=== PATIENT | male | born 2000 ===

== ENCOUNTER 2020-12-23 11:46 | Emergency (ER) | payer OTHER ==
[2020-12-23] MEDS ORDERED: IBUPROFEN 600 MG TAB PO STA (12:10)
[2020-12-23] MEDS ORDERED: ACETAMINOPHEN TAB 500 MG TAB PO STA (12:10)
[2020-12-23] MEDS ORDERED: SODIUM CHLORIDE 0.9% 1,000 ML IV STA (12:11)
--- NOTE | 2020-12-23 12:42 | XR ---
EXAMINATION TYPE: XR chest 2V DATE OF EXAM: 12/23/2020 COMPARISON: NONE TECHNIQUE: PA and lateral views submitted. HISTORY: Fever and cough FINDINGS: The lungs are clear and there is no pneumothorax, pleural effusion, or focal pneumonia. Interstitia l pattern noted. IMPRESSION: 1. Related bronchitis or interstitial pneumonia, pneumonitis.
[2020-12-23] MEDS ORDERED: SODIUM CHLORIDE 0.9% 50 ML IVPB ONE (14:00)
--- NOTE | 2020-12-23 14:26 | ED ---
General Adult HPI - General Chief complaint: Nausea/Vomiting/Diarrhea Stated complaint: Covid exposure, fever, N/V/D, SOB Time Seen by Provider: 12/23/20 12:06 Source: patient, RN notes reviewed Mode of arrival: ambulatory Limitations: no limitations - History of Present Illness Initial comments: Patient is a 20-year-old male who tested positive for Covid several days ago. She notes that he is feverish has a cough. He came to the emergency room because he was not feeling well. Nurse noted the patient was hyperventilating during her triage. He was otherwise a well-appearing 20-year-old male. He denied any chest pain shortness of breath headache diarrhea constipation. - Related Data Allergies Allergy/AdvReac Type Severity Reaction Status Date / Time No Known Allergies Allergy Verified 12/23/20 12:42 Review of Systems ROS Statement: Those systems with pertinent positive or pertinent negative responses have been documented in the HPI. ROS Other: All systems not noted in ROS Statement are negative. Past Medical History Past Medical History: Asthma History of Any Multi-Drug Resistant Organisms: None Reported Past Surgical History: No Surgical Hx Reported Past Psychological History: No Psychological Hx Reported Smoking Status: Current every day smoker Past Alcohol Use History: None Reported Past Drug Use History: Marijuana General Exam Limitations: no limitations General appearance: alert, in no apparent distress Head exam: Present: atraumatic, normocephalic, normal inspection Eye exam: Present: normal appearance, PERRL, EOMI. Absent: scleral icterus, conjunctival injection, periorbital swelling Neck exam: Present: normal inspection Respiratory exam: Present: normal lung sounds bilaterally. Absent: respiratory distress, wheezes, rales, rhonchi, stridor Cardiovascular Exam: Present: regular rate, normal rhythm, normal heart sounds. Absent: systolic murmur, diastolic murmur, rubs, gallop, clicks GI/Abdominal exam: Present: soft, normal bowel sounds. Absent: distended, tenderness, guarding, rebound, rigid Extremities exam: Present: normal inspection, full ROM, normal capillary refill. Absent: tenderness, pedal edema, joint swelling, calf tenderness Neurological exam: Present: alert, oriented X3 Psychiatric exam: Present: normal affect, normal mood Skin exam: Present: warm, dry, intact, normal color. Absent: rash Course Vital Signs 12/23/20 12/23/20 11:47 12:25 Temperature 99.0 F Pulse Rate 95 Respiratory 16 28 H Rate Blood Pressure 133/72 O2 Sat by Pulse 100 Oximetry Medical Decision Making - Medical Decision Making 20-year-old male tested positive for covert several days ago presenting for reevaluation. Covid test, chest x-ray ordered. Covid test positive. Monoclonal antibody therapy ordered as patient does meet the criteria. Case discussed with Dr. Yanez him a patient can discharge home after infusion. - Lab Data Lab Results 12/23/20 Range/Units 12:53 Coronavirus (PCR) Detected A (Not Detectd) - Radiology Data Radiology results: report reviewed, image reviewed Chest x-ray: Related bronchitis or interstitial pneumonia. Pneumonitis. Disposition Clinical Impression: COVID Disposition: HOME SELF-CARE Condition: Stable Instructions (If sedation given, give patient instructions): Coronavirus Disease 2019 (COVID-19) Additional Instructions: Please return to the Emergency Department if symptoms worsen or any other concerns. Follow-up primary care as needed. Social distance for the next 10-14 days. Take Tylenol Motrin as needed for fever. Increase oral fluids. Avoid any strenuous activity or exercise. Is patient prescribed a controlled substance at d/c from ED?: No Referrals: None,Stated [Primary Care Provider] - 1-2 days Time of Disposition: 14:26
[2020-12-23] MEDS ORDERED: CASIRIVIMAB (REGN10933) (EUA) 600 MG, IMDEVIMAB (REGN10987) (EUA) 600 MG in SODIUM CHLO... IVPB ONE (14:30)
[2020-12-23 14:51] VITALS: RESP 20
[2020-12-23 15:13] VITALS: BP 122/78; PULSE 82; TEMP 98.2
== END 2020-12-23 15:25 | disposition home or self-care (01) ==
LOC: EC 11:46
DX: U07.1 COVID-19 (principal); F17.200 Nicotine dependence, unspecified, uncomplicated; J45.909 Unspecified asthma, uncomplicated
CPT/HCPCS: 87635; 71046; 99285; Q0243

== ENCOUNTER 2021-08-18 08:59 | Emergency (ER) | payer OTHER ==
[2021-08-18 09:06] VITALS: BP 147/88; PULSE 70; RESP 20; TEMP 98.6
[2021-08-18] MEDS ORDERED: ACET/COD 300 MG/30 MG STARTER PACK 6 TAB BTL PO STA (09:49)
--- NOTE | 2021-08-18 09:49 | ED ---
General Adult HPI - General Chief complaint: Neck Pain/Injury Stated complaint: shoulder pain Time Seen by Provider: 08/18/21 09:19 Source: patient, RN notes reviewed Mode of arrival: ambulatory Limitations: no limitations - History of Present Illness Initial comments: This a 20-year-old male presents emergency department with chief complaint right-sided neck pain. Patient states that started yesterday though work states that it's right shoulder neck hurts return to way the left is primarily on the right side. He denies any blurred vision no focal weakness no fevers or chills denies any trauma no falls. Patient states that at rest he is much better. - Related Data Previous Rx's Medication Instructions Recorded Cyclobenzaprine [Flexeril] 10 mg PO TID PRN #15 tab 08/18/21 Ibuprofen [Motrin] 600 mg PO Q8HR PRN #30 tab 08/18/21 Allergies Allergy/AdvReac Type Severity Reaction Status Date / Time No Known Allergies Allergy Verified 08/18/21 09:06 Review of Systems ROS Statement: Those systems with pertinent positive or pertinent negative responses have been documented in the HPI. ROS Other: All systems not noted in ROS Statement are negative. Past Medical History Past Medical History: Asthma History of Any Multi-Drug Resistant Organisms: None Reported Past Surgical History: No Surgical Hx Reported Past Psychological History: No Psychological Hx Reported Smoking Status: Current every day smoker Past Alcohol Use History: None Reported Past Drug Use History: Marijuana General Exam Limitations: no limitations General appearance: alert, in no apparent distress Head exam: Present: atraumatic, normocephalic, normal inspection Eye exam: Present: normal appearance, PERRL, EOMI. Absent: scleral icterus, conjunctival injection, periorbital swelling ENT exam: Present: normal exam, normal oropharynx, mucous membranes moist Neck exam: Present: normal inspection, tenderness (Right trapezius), full ROM (Pain with range of motion primarily looking to the left). Absent: meningismus, lymphadenopathy Respiratory exam: Present: normal lung sounds bilaterally. Absent: respiratory distress, wheezes, rales, rhonchi, stridor Cardiovascular Exam: Present: regular rate, normal rhythm, normal heart sounds. Absent: systolic murmur, diastolic murmur, rubs, gallop, clicks Extremities exam: Present: other (Upper extremity strength equal bilaterally, neurovascular intact equal color equal warmth) Course Vital Signs 08/18/21 09:04 Temperature 98.6 F Pulse Rate 70 Respiratory 20 Rate Blood Pressure 147/88 O2 Sat by Pulse 99 Oximetry Medical Decision Making - Medical Decision Making Patient has right trapezius muscle strain, muscle spasm. Patient will be discharged in stable condition with pain control, anti-inflammatories and muscle relaxers. Disposition Clinical Impression: Trapezius muscle spasm, Neck pain Disposition: HOME SELF-CARE Condition: Stable Instructions (If sedation given, give patient instructions): Cervical Strain (ED), Muscle Spasm (ED) Additional Instructions: Please return to the Emergency Department if symptoms worsen or any other concerns. Prescriptions: Cyclobenzaprine [Flexeril] 10 mg PO TID PRN #15 tab PRN Reason: Muscle Spasm Ibuprofen [Motrin] 600 mg PO Q8HR PRN #30 tab PRN Reason: Pain Is patient prescribed a controlled substance at d/c from ED?: No Referrals: None,Stated [Primary Care Provider] - 1-2 days Time of Disposition: 09:49
== END 2021-08-18 10:05 | disposition home or self-care (01) ==
LOC: EC 08:59
DX: M54.2 Cervicalgia (principal); M62.838 Other muscle spasm; J45.909 Unspecified asthma, uncomplicated; F17.200 Nicotine dependence, unspecified, uncomplicated
CPT/HCPCS: 99283

== ENCOUNTER → 2021-09-11 | Outpatient (CLI) | payer OTHER ==
--- NOTE | 2021-09-11 14:29 | XR ---
EXAMINATION TYPE: XR thoracic spine complete DATE OF EXAM: 09/11/2021 COMPARISON: NONE HISTORY: Pain TECHNIQUE: 3 views submitted FINDINGS: Alignment is anatomic. There is no compression deformities. There is mild hypertrophic spurring invo lving the lower thoracic spine with mild disc space narrowing. IMPRESSION: 1. Mild anterior hypertrophic spurring with mild disc space narrowing and lower thoracic spine.
--- NOTE | 2021-09-11 14:29 | XR ---
EXAM TYPE: LUMBAR SPINE X RAY SERIES COMPARISON: NONE HISTORY: Pain TECHNIQUE: 3 views are submitted. FINDINGS: Alignment is anatomic. The pedicles are intact. The transverse processes are intact. There is no s pondylolysis or spondylolisthesis. Mild disc space narrowing L4-5 and L5-S1. Facet arthropathy L4-5 and L5-S1. IMPRESSION: 1. Mild disc space narrowing L4-5 and L5-S1 with mild facet arthropathy arthropathy. Consider MRI.
== END | disposition home or self-care (01) ==
LOC: RADXRMAIN 13:59
PROVIDERS: ATTEND Internal Medicine
DX: M89.38 Hypertrophy of bone, other site (principal)
CPT/HCPCS: 72072; 72100

== ENCOUNTER → 2022-10-29 | Outpatient (CLI) | payer OTHER ==
--- NOTE | 2022-10-29 07:31 | MR ---
EXAMINATION TYPE: MR thoracic spine wo con DATE OF EXAM: 10/29/2022 COMPARISON: Thoracic spine x-ray August 05, 2022 HISTORY: Chronic mid back pain. Kyphoscoliosis per patient. TECHNIQUE: Multiplanar, multisequence imaging of thoracic spine is performed without contrast FINDINGS: Spinal cord shows normal course, caliber, and signal as it courses the thoracic spine. Jonathan tebral body heights and alignment are satisfactory. Disc space heights are maintained. Bone marrow si gnal intensity is preserved. Minimal multilevel anterior spurring. Review of the axial images shows multilevel tiny central disc protrusions minimally effacing anterior thecal sac beginning at T7-T8 level on image 17 series 701 extending to T11-T12 level. The visualize d upper abdomen and thorax show no obvious abnormality. The paraspinal muscle bulk is maintained. IMPRESSION: A few multilevel tiny posterior disc herniations minimally efface the anterior thecal sac .
== END | disposition home or self-care (01) ==
LOC: RADMRIMAIN 06:35
PROVIDERS: ATTEND Internal Medicine
DX: M51.24 Other intervertebral disc displacement, thoracic region (principal); G89.29 Other chronic pain; M41.84 Other forms of scoliosis, thoracic region
CPT/HCPCS: 72146